=== PATIENT | male | born 1980 | race American Indian/Alaskan Native ===

== ENCOUNTER 2019-11-19 11:17 | Emergency (ER) | payer SELFPAY ==
[2019-11-19] MEDS ORDERED: methylPREDNISolone Sod Succinate 125 MG/2 ML INJ IV ONE (11:54)
[2019-11-19] MEDS ORDERED: KETOROLAC 30 MG/1 ML INJ IV ONE (11:54)
[2019-11-19] MEDS ORDERED: GABAPENTIN 300 MG CAP PO ONE (11:54)
--- NOTE | 2019-11-19 12:00 | Emergency Department Report ---
ED Extremity Problem HPI - General Chief complaint: Extremity Injury, Lower Stated complaint: SIATIC NERVE PAIN Time Seen by Provider: 11/19/19 11:45 Source: patient Mode of arrival: Wheelchair Limitations: No Limitations - History of Present Illness Initial comments: 39 yr old male was brought to ED via EMS with complaints of left hip/left lower back pain. Pt states 3 days ago he woke with with pain in left foot that was radiating into his left hip. Now he states the pain is mainly in left hip/left lower back and radiates into his thigh. He denies any injury or strenous activity. He states pain is worse with any movement. He states he has tried OTC meds without relief. He denies any abd pain, saddle anesthesia, leg weakness, bowel or bladder incontinence /retention. He denies any fever, chills or IV drug use. He states he had about 3-4 yrs ago. He states at the time he was given steroid injection and after that he was fine. He states he was not told what it could have been. He states he never had to f/u with PCP or ortho. MD Complaint: extremity pain, joint paint, other (Left hip pain) -: Gradual (3 days ago ) - Related Data Previous Rx's Medication Instructions Recorded Last Taken Type Gabapentin 300 mg PO DAILY #15 capsule 11/19/19 Unknown Rx predniSONE [Deltasone] 50 mg PO QDAY #5 tab 11/19/19 Unknown Rx Allergies Allergy/AdvReac Type Severity Reaction Status Date / Time No Known Allergies Allergy Verified 11/19/19 11:30 ED Review of Systems ROS: Stated complaint: SIATIC NERVE PAIN Other details as noted in HPI Comment: All other systems reviewed and negative Constitutional: chills. denies: fever Respiratory: denies: cough, shortness of breath, wheezing Cardiovascular: denies: chest pain, palpitations Gastrointestinal: denies: abdominal pain, nausea, diarrhea Musculoskeletal: back pain, arthralgia Neurological: abnormal gait. denies: headache, weakness, paresthesias ED Past Medical Hx - Past Medical History Previous Medical History?: No - Surgical History Past Surgical History?: No - Social History Smoking Status: Never Smoker Substance Use Type: None - Medications Home Medications: Home Medications Medication Instructions Recorded Confirmed Last Taken Type Gabapentin 300 mg PO DAILY #15 capsule 11/19/19 Unknown Rx predniSONE [Deltasone] 50 mg PO QDAY #5 tab 11/19/19 Unknown Rx ED Physical Exam - General Limitations: No Limitations General appearance: alert, in no apparent distress, in distress (mild from pain) - Head Head exam: Present: atraumatic, normocephalic, normal inspection - Eye Eye exam: Present: normal appearance, PERRL, EOMI Pupils: Present: normal accommodation - ENT ENT exam: Present: normal exam, mucous membranes dry, mucous membranes moist - Respiratory Respiratory exam: Absent: respiratory distress - Cardiovascular Cardiovascular Exam: Present: regular rate - GI/Abdominal GI/Abdominal exam: Present: soft, distended - Extremities Exam Extremities exam: Present: other (TTP lateral aspect of left hip but pain is worse with ROM of Left hip therefore ROM of left hip reduced. No deformity swelling, ecchymosis, or erythema noted. ). Absent: normal capillary refill, pedal edema, joint swelling - Back Exam Back exam: Present: normal inspection, paraspinal tenderness (left lower lumbar), other (+SLR left about 60 degrees ). Absent: vertebral tenderness - Neurological Exam Neurological exam: Present: alert, oriented X3, CN II-XII intact, motor sensory deficit - Psychiatric Psychiatric exam: Present: normal affect, normal mood - Skin Skin exam: Present: intact ED Course Vital Signs 11/19/19 11/19/19 11/19/19 11:31 12:18 12:48 Temperature 97.5 F L Pulse Rate 90 Respiratory 16 18 18 Rate Blood Pressure 136/89 Blood Pressure [Left] O2 Sat by Pulse 100 Oximetry 11/19/19 11/19/19 13:49 13:52 Temperature Pulse Rate 91 H Respiratory 16 18 Rate Blood Pressure Blood Pressure 140/89 [Left] O2 Sat by Pulse 98 Oximetry ED Medical Decision Making - Radiology Data Radiology results: report reviewed - Medical Decision Making 2488 -- Pt reports mild relief of his pain after solumedrol, gabapentin and toradol. xray of lumbar spin and hip show nothing acute. Pt is awake, alert, oriented x 3 and neurologically intact. His VS stable. His history and PE does not suggest cauda equida, epidural abscess, epidural hematoma, Aortic dissection/Aneurysm or any other serious pathology requiring additional testing, admission, or emergent consult at this time. Discussed xray report, suspected dx and treatment plan with pt. He will be given referral to Ortho and local PCP. Pt stable at time of d/c. Critical care attestation.: If time is entered above; I have spent that time in minutes in the direct care of this critically ill patient, excluding procedure time. ED Disposition Clinical Impression: Lumbar radiculopathy, acute Disposition: DC-01 TO HOME OR SELFCARE Is pt being admited?: No Does the pt Need Aspirin: No Condition: Stable Instructions: Sciatica (ED) Additional Instructions: Take medications as prescribed. I recommend follow up with Freight [facility]er if symptoms continues next week. You may need MRI. Return to ED if your symptoms changes or worsens in anyway. Prescriptions: predniSONE [Deltasone] 50 mg PO QDAY #5 tab Gabapentin 300 mg PO DAILY #15 capsule Referrals: HERO FERRARA MD [Staff Physician] - 3-5 Days MARTHA MONSALVE MD [Staff Physician] - 3-5 Days Forms: Work/School Release Form(ED) Time of Disposition: 14:31
--- NOTE | 2019-11-19 12:54 | XRay Report ---
LUMBAR SPINE 3 VIEWS INDICATION / CLINICAL INFORMATION: radiculopathy. COMPARISON: None available. FINDINGS: BONES/JOINT(S): No acute fracture or subluxation. No significant degenerative changes. SOFT TISSUES: No significant abnormality. ADDITIONAL FINDINGS: None. Signer Name: Adam Garrett MD Signed: 11/19/2019 12:50 PM Workstation Name: [id number]
--- NOTE | 2019-11-19 12:55 | XRay Report ---
LEFT HIP 2 VIEWS INDICATION / CLINICAL INFORMATION: hip injury. COMPARISON: None available. FINDINGS: BONES/JOINT(S): No acute fracture or subluxation. No significant degenerative changes. SOFT TISSUES: No significant abnormality. ADDITIONAL FINDINGS: None. Signer Name: Adam Garrett MD Signed: 11/19/2019 12:50 PM Workstation Name: [email or web address]
[2019-11-19] MEDS ORDERED: ACETAMINOPHEN W/CODEINE 300-30 MG TAB PO ONE ×2 (13:39→14:36)
[2019-11-19 13:51] VITALS: BP 140/89
== END 2019-11-19 14:59 | disposition home or self-care (01) ==
LOC: ED 11:17
DX: M54.16 Radiculopathy, lumbar region (principal)
CPT/HCPCS: 72100; 73502; 99283; J1885; J2930

== ENCOUNTER 2020-08-04 21:37 | Observation (INO) | payer SELFPAY ==
[2020-08-04 23:18] LABS: Mean Corpuscular Volume 77 fl (84-94); Platelet Count 247 K/mm3 (140-440); Red Blood Count 5.13 M/mm3 (3.65-5.03); Red Cell Distribution Width 16.2 % (13.2-15.2)
[2020-08-04 23:27] LABS: Hematocrit 39.5 % (35.5-45.6); Hemoglobin 15.3 gm/dl (11.8-15.2)
[2020-08-04 23:29] LABS: Mean Corpuscular HGB Conc 39 % (32-34)
[2020-08-04 23:44] LABS: Albumin 3.1 g/dL (3.9-5); Blood Urea Nitrogen 9 mg/dL (9-20); Calcium 8.5 mg/dL (8.4-10.2); Hemolysis Index 219
--- NOTE | 2020-08-04 23:56 | XRay Report ---
CHEST 1 VIEW 2315 INDICATION / CLINICAL INFORMATION: Palpitations, dyspnea COMPARISON: None available. FINDINGS: SUPPORT DEVICES: None HEART / MEDIASTINUM: No significant abnormality. LUNGS / PLEURA: No significant pulmonary or pleural abnormality. No pneumothorax. ADDITIONAL FINDINGS: No significant additional findings. IMPRESSION: No significant acute abnormality Signer Name: Anand Woo MD Signed: 08/04/2020 11:52 PM Workstation Name: [id number]
--- NOTE | 2020-08-05 00:03 | Event Note ---
ED Screening Note Date of service: 08/04/20 Time: 23:35 ED Screening Note: Patient is a 40-year-old -[place] male with no past medical history except chronic heavy tobacco abuse who presents to the ED with complaint of acute onset persistent shortness of breath, chest pain, dizziness and lightheadedness with persistent near syncopal episodes for the last 2 days. Patient states that the symptoms have worsened even at rest. Patient denies fever, chills, sore throat, headache, loss of consciousness, abdominal pain, nausea and vomiting, diarrhea, dysuria, urinary frequency and urgency, palpitations, change in vision, cough or traumatic injury or neck pain or back pain. This initial assessment/diagnostic orders/clinical plan/treatment(s) is/are subject to change based on patients health status, clinical progression and re- assessment by fellow clinical providers in the ED. Further treatment and workup at subsequent clinical providers discretion. Patient/guardian urged not to elope from the ED as their condition may be serious if not clinically assessed and managed. Initial orders include: CBC, CMP, troponin, EKG, chest x-ray
[2020-08-05 00:06] LABS: Alanine Aminotransferase 95 units/L (7-56)
[2020-08-05 00:10] LABS: BUN/Creatinine Ratio 45
[2020-08-05] MEDS ORDERED: SODIUM CHLORIDE 0.9% 1000 ML 1,000 ML IV ONE (01:46)
--- NOTE | 2020-08-05 01:51 | Emergency Department Report ---
HPI - General Chief Complaint: Dyspnea/Respdistress Time Seen by Provider: 08/05/20 01:39 - HPI HPI: This is a 40-year-old male presents to the emergency department with a complaint of a 1 day history of having some shortness of breath, palpitations and some lightheadedness/dizziness. He denies any fever, vision change, slurred speech, numbness or paresthesias, chest pain, lower extremity edema. Patient is a tobacco smoker but denies any illicit drug use. The patient does admit to drinking alcohol but says that he does not drink every day and denies any history of dependence. He has not taken anything for symptoms prior to presentation. The palpitations feels like his heart is beating fast and hard. No recent travel or sick contacts at home. He denies any past medical history. He does not have a primary care physician. ED Past Medical Hx - Past Medical History Previous Medical History?: No - Surgical History Additional Surgical History: right thumb - Social History Smoking Status: Current Every Day Smoker Substance Use Type: Alcohol - Medications Home Medications: Home Medications Medication Instructions Recorded Confirmed Last Taken Type Gabapentin 300 mg PO DAILY #15 capsule 11/19/19 Unknown Rx predniSONE [Deltasone] 50 mg PO QDAY #5 tab 11/19/19 Unknown Rx ED Review of Systems ROS: Stated complaint: DIZZINESS/TROUBLE BREATHING Other details as noted in HPI Comment: All other systems reviewed and negative Constitutional: denies: chills, fever Eyes: denies: eye pain, vision change ENT: denies: ear pain, throat pain Respiratory: shortness of breath. denies: cough Cardiovascular: palpitations. denies: chest pain, edema Gastrointestinal: denies: abdominal pain, vomiting Genitourinary: denies: dysuria, discharge Musculoskeletal: denies: back pain, arthralgia Skin: denies: rash, lesions Neurological: other (lightheaded). denies: headache Physical Exam - Physical Exam Vital Signs: Vital Signs 08/04/20 22:42 Temperature 98.8 F Pulse Rate 101 H Respiratory 18 Rate Blood Pressure 135/83 O2 Sat by Pulse 100 Oximetry Physical Exam: GENERAL: The patient is well-developed well-nourished. HENT: Normocephalic. Atraumatic. Patient has moist mucous membranes. EYES: Extraocular motions are intact. NECK: Supple. Trachea is midline. CHEST/LUNGS: Clear to auscultation. There is no respiratory distress noted. HEART/CARDIOVASCULAR: Regular. There is mild tachycardia. There is no murmur. ABDOMEN: Abdomen is soft, nontender. Patient has normal bowel sounds. SKIN: Skin is warm and dry. NEURO: The patient is awake, alert, and oriented. The patient is cooperative. The patient has no focal neurologic deficits. Normal speech. Cranial nerves II through XII grossly intact. MUSCULOSKELETAL: There is no tenderness or deformity. There is no limitation range of motion. ED Course Vital Signs 08/04/20 22:42 Temperature 98.8 F Pulse Rate 101 H Respiratory 18 Rate Blood Pressure 135/83 O2 Sat by Pulse 100 Oximetry ED Medical Decision Making - Lab Data Result diagrams: 08/04/20 23:04 08/04/20 23:04 Labs 08/04/20 08/04/20 08/04/20 23:04 23:04 23:04 WBC 9.1 RBC 5.13 H Hgb 15.3 H Hct 39.5 MCV 77 L MCH 30 MCHC 39 H* RDW 16.2 H Plt Count 247 Lymph % (Auto) Hatch Supervisor Lymph # (Auto) Hatch Supervisor Add Manual Diff Complete Total Counted 100 Seg Neutrophils % Hatch Supervisor Seg Neuts % (Manual) 74.0 H Band Neutrophils % 2.0 Lymphocytes % (Manual) 19.0 Monocytes % (Manual) 4.0 Basophils % (Manual) 1.0 Nucleated RBC % Not Reportable Seg Neutrophils # Man 6.7 Band Neutrophils # 0.2 Lymphocytes # (Manual) 1.7 Abs React Lymphs (Man) 0.0 Monocytes # (Manual) 0.4 Eosinophils # (Manual) 0.0 Basophils # (Manual) 0.1 Metamyelocytes # 0.0 Myelocytes # 0.0 Promyelocytes # 0.0 Blast Cells # 0.0 WBC Morphology Not Reportable Hypersegmented Neuts Not Reportable Hyposegmented Neuts Not Reportable Hypogranular Neuts Not Reportable Smudge Cells Not Reportable Toxic Granulation Not Reportable Toxic Vacuolation Not Reportable Dohle Bodies Not Reportable Pelger-Huet Anomaly Not Reportable Lacy Rods Not Reportable Platelet Estimate Consistent w auto Clumped Platelets Not Reportable Plt Clumps, EDTA Not Reportable Large Platelets Not Reportable Giant Platelets Not Reportable Platelet Satelliting Not Reportable Plt Morphology Comment Not Reportable RBC Morphology Not Reportable Dimorphic RBCs Not Reportable Polychromasia Not Reportable Hypochromasia Not Reportable Poikilocytosis Not Reportable Anisocytosis Not Reportable Microcytosis Not Reportable Macrocytosis Not Reportable Spherocytes Not Reportable Pappenheimer Bodies Not Reportable Sickle Cells Not Reportable Target Cells Not Reportable Tear Drop Cells Not Reportable Ovalocytes Not Reportable Helmet Cells Not Reportable Stanton-Waterman Bodies Not Reportable [place] Rings Not Reportable [place] Cells Not Reportable Bite Cells Not Reportable Crenated Cell Not Reportable Elliptocytes Not Reportable Acanthocytes (Spur) Not Reportable Rouleaux Not Reportable Hemoglobin C Crystals Not Reportable Schistocytes Not Reportable Malaria parasites Not Reportable Otoniel Bodies Not Reportable Hem Pathologist Commnt No Sodium 118 L* Potassium 4.5 Chloride 80.6 L Carbon Dioxide 16 L Anion Gap 26 BUN 9 Creatinine < 0.2 L Estimated GFR > 60 BUN/Creatinine Ratio 45 Glucose 90 Calcium 8.5 Phosphorus Magnesium Total Bilirubin 0.80 AST 177 H ALT 95 H Alkaline Phosphatase 177 H Troponin T < 0.010 Total Protein 6.7 Albumin 3.1 L Albumin/Globulin Ratio 0.9 TSH 1.580 Hepatitis A IgM Ab Hep Bs Antigen Hep B Core IgM Ab Hepatitis C Antibody 08/04/20 08/04/20 23:04 23:04 WBC RBC Hgb Hct MCV MCH MCHC RDW Plt Count Lymph % (Auto) Lymph # (Auto) Add Manual Diff Total Counted Seg Neutrophils % Seg Neuts % (Manual) Band Neutrophils % Lymphocytes % (Manual) Monocytes % (Manual) Basophils % (Manual) Nucleated RBC % Seg Neutrophils # Man Band Neutrophils # Lymphocytes # (Manual) Abs React Lymphs (Man) Monocytes # (Manual) Eosinophils # (Manual) Basophils # (Manual) Metamyelocytes # Myelocytes # Promyelocytes # Blast Cells # WBC Morphology Hypersegmented Neuts Hyposegmented Neuts Hypogranular Neuts Smudge Cells Toxic Granulation Toxic Vacuolation Dohle Bodies Pelger-Huet Anomaly Lacy Rods Platelet Estimate Clumped Platelets Plt Clumps, EDTA Large Platelets Giant Platelets Platelet Satelliting Plt Morphology Comment RBC Morphology Dimorphic RBCs Polychromasia Hypochromasia Poikilocytosis Anisocytosis Microcytosis Macrocytosis Spherocytes Pappenheimer Bodies Sickle Cells Target Cells Tear Drop Cells Ovalocytes Helmet Cells Stanton-Waterman Bodies [place] Rings [place] Cells Bite Cells Crenated Cell Elliptocytes Acanthocytes (Spur) Rouleaux Hemoglobin C Crystals Schistocytes Malaria parasites Otoniel Bodies Hem Pathologist Commnt Sodium Potassium Chloride Carbon Dioxide Anion Gap BUN Creatinine Estimated GFR BUN/Creatinine Ratio Glucose Calcium Phosphorus 2.40 L Magnesium 1.80 Total Bilirubin AST ALT Alkaline Phosphatase Troponin T Total Protein Albumin Albumin/Globulin Ratio TSH Hepatitis A IgM Ab Non-reactive Hep Bs Antigen Non-reactive Hep B Core IgM Ab Non-reactive Hepatitis C Antibody Non-reactive - EKG Data -: EKG Interpreted by Me EKG shows normal: sinus rhythm, axis, intervals, QRS complexes, ST-T waves Rate: normal - EKG Data When compared to previous EKG there are: previous EKG unavailable Interpretation: normal EKG - Radiology Data Radiology results: image reviewed interpreted by me: Chest x-ray does not show any acute process. There are no pleural effusions, obvious pneumonia and there is no pneumothorax. No significant cardiomegaly. - Medical Decision Making This patient presents to the emergency department with complaint of some generalized weakness, lightheadedness, palpitations, shortness of breath. The patient has multiple lab and electrolyte abnormalities. While patient does admit to drinking alcohol at times, he denies that he drinks every day or have any history of alcohol dependence. However his transaminitis with AST to ALT ratio, and the hypochloremic hyponatremia, does give me suspicion for history of chronic alcohol abuse. On examination the patient does not have any focal, motor or sensory deficits and his cranial nerves are intact. Heart and lung sounds are normal to auscultation. He does not appear in any respiratory distress. He was started on IV fluid resuscitation with normal saline as the normal saline is hypertonic to his current sodium level. He will be admitted to the hospital for further evaluation and treatment and was accepted for admission by the hospitalist, Dr. Winchester. Critical Care Time: No Critical care attestation.: If time is entered above; I have spent that time in minutes in the direct care of this critically ill patient, excluding procedure time. ED Disposition Clinical Impression: Hyponatremia syndrome, Hypochloremia, Transaminitis Disposition: OP ADMIT IP TO THIS HOSP Is pt being admited?: Yes Condition: Serious Time of Disposition: 01:57
[2020-08-05 02:02] LABS: Total Cells Counted 100
[2020-08-05 02:10] LABS: Band Neutrophils # (Manual) 0.2 K/mm3
[2020-08-05 02:12] LABS: Platelet Estimate Consistent w Auto
[2020-08-05] MEDS ORDERED: ONDANSETRON 4 MG/2 ML INJ IV PRN (02:48)
[2020-08-05] MEDS ORDERED: ACETAMINOPHEN 325 MG TAB PO PRN (02:48)
[2020-08-05] MEDS ORDERED: HALOPERIDOL LACTATE 5 MG/1 ML INJ IV PRN (02:48)
[2020-08-05] MEDS ORDERED: ALBUTEROL 2.5 MG/3 ML NEBU IH PRN (02:48)
[2020-08-05] MEDS ORDERED: LORazepam 2 MG/ML VIAL IV PRN (02:48)
[2020-08-05] MEDS ORDERED: SODIUM CHLORIDE 0.9% 1000 ML 1,000 ML IV SCH (03:00)
[2020-08-05] MEDS ORDERED: METOCLOPRAMIDE 10 MG/2 ML INJ IV ONE (03:05)
--- NOTE | 2020-08-05 03:44 | History and Physical Report ---
History of Present Illness Date of examination: 08/05/20 Date of admission: 08/05/20 01:57 Chief complaint: Palpitations, shortness of breath, generalized weakness History of present illness: 40-year-old -Eth[place]ian male who is an ongoing smoker with history of alcohol abuse who presents [facility] with complaints of lightheadedness, dizziness, palpitation, shortness of breath and generalized weakness x1 to 2 days. Patient states that he feels like his heart is beating faster and harder than usual. He is normally at rest when experiencing palpitations. Endorses mild dyspnea at rest. Admits to new stress at home that he is still trying to cope with, and thinks that he might have undiagnosed anxiety. Denies illicit drug use, alterations in speech, alterations in gait, syncopal episodes, recent fall/injury, lower extremity edema, abdominal pain, hematuria, cough, fever, headache, sputum production or illicit drug use. Past History Past Surgical History: Other (Right thumb surgery) Social history: single, lives with family (Sister), smoking, alcohol abuse, full code. denies: prescription drug abuse, IV drug use Family history: no significant family history Medications and Allergies Allergies Allergy/AdvReac Type Severity Reaction Status Date / Time No Known Allergies Allergy Verified 11/19/19 11:30 Home Medications Medication Instructions Recorded Confirmed Last Taken Type Gabapentin 300 mg PO DAILY #15 capsule 11/19/19 Unknown Rx predniSONE [Deltasone] 50 mg PO QDAY #5 tab 11/19/19 Unknown Rx Active Meds: Active Medications Acetaminophen (Acetaminophen 325 Mg Tab) 650 mg PO Q4H PRN PRN Reason: Pain MILD(1-3)/Fever >100.5/STARR Albuterol (Albuterol 2.5 Mg/3 Ml Nebu) 2.5 mg IH Q4HRT PRN PRN Reason: Shortness Of Breath Docusate Sodium (Docusate Sodium 100 Mg Cap) 100 mg PO BID RODRIKC Famotidine (Famotidine 20 Mg/2 Ml Inj) 20 mg IV BID RODRICK Folic Acid (Folic Acid 1 Mg Tab) 1 mg PO QDAY RODRICK Haloperidol Lactate (Haloperidol Lactate 5 Mg/1 Ml Inj) 5 mg IV Q1H PRN PRN Reason: Unrespon. to mult. doses BZD's Sodium Chloride (Nacl 0.9% 1000 Ml) 1,000 mls @ 250 mls/hr IV ONCE ONE Stop: 08/05/20 05:45 Last Admin: 08/05/20 02:27 Dose: 250 mls/hr Documented by: Sodium Chloride (Nacl 0.9% 1000 Ml) 1,000 mls @ 100 mls/hr IV DIRECT RODRICK Piperacillin Sod/Tazobactam Sod (Zosyn/Ns 4.5gm/100ml) 4.5 gm in 100 mls @ 200 mls/hr IV Q8H RODRICK; Protocol Lorazepam (Lorazepam 2 Mg/Ml Vial) 2 mg IV Q1H PRN PRN Reason: CIWA-Ar 8-15 Multivitamins (Multivitamins ,Therapeutic Tab) 1 each PO QDAY RODRICK Nicotine (Nicotine 14 Mg/24 Hr Patch) 14 mg TD QDAY RODRICK Ondansetron HCl (Ondansetron 4 Mg/2 Ml Inj) 4 mg IV Q6H PRN PRN Reason: Nausea And Vomiting Sodium Chloride (Sodium Chloride 0.9% 10 Ml Flush Syringe) 10 ml IV BID RODRICK Sodium Chloride (Sodium Chloride 0.9% 10 Ml Flush Syringe) 10 ml IV PRN PRN PRN Reason: LINE FLUSH Thiamine HCl (Thiamine 100 Mg Tab) 100 mg PO QDAY RODRICK Review of Systems All systems: negative (As noted in HPI) Exam - Physical Exam Narrative exam: Physical exam General appearance: Present: No acute distress, alert and oriented 3, - Ethiopian adult male - EENT Eyes: Present: PERRL, EOM intact ENT: hearing intact, normal dentition - Neck Neck: Present: supple, normal ROM - Respiratory Respiratory effort: Non-labored Respiratory: Clear throughout - Cardiovascular Heart rate: 72(bpm) Rhythm: Sinus Heart Sounds: Present: S1 & S2. Absent: rub, click - Extremities Extremities: no ischemia, pulses intact, - Peripheral Assessment Peripheral Pulses: within normal limits - Abdominal General gastrointestinal: Distended, non-tender, normal bowel sounds - Integumentary Integumentary: Present: warm, dry - Musculoskeletal Musculoskeletal: Able to move all extremities -Neurological Neurological: CN II-XII intact - Psychiatric Psychiatric: cooperative - Constitutional Vitals: Temp Pulse Resp BP Pulse Ox 98.8 F 94 H 19 147/92 100 08/04/20 22:42 08/05/20 02:30 08/05/20 02:30 08/05/20 02:30 08/04/20 22:42 HEART Score - HEART Score Troponin: Troponin T < 0.010 ng/mL (0.00-0.029) 08/04/20 23:04 Results - Labs CBC & Chem 7: 08/04/20 23:04 08/04/20 23:04 Labs: Laboratory Last Values WBC 9.1 K/mm3 (4.5-11.0) 08/04/20 23:04 RBC 5.13 M/mm3 (3.65-5.03) H 08/04/20 23:04 Hgb 15.3 gm/dl (11.8-15.2) H 08/04/20 23:04 Hct 39.5 % (35.5-45.6) 08/04/20 23:04 MCV 77 fl (84-94) L 08/04/20 23:04 MCH 30 pg (28-32) 08/04/20 23:04 MCHC 39 % (32-34) H* 08/04/20 23:04 RDW 16.2 % (13.2-15.2) H 08/04/20 23:04 Plt Count 247 K/mm3 (140-440) 08/04/20 23:04 Lymph % (Auto) Senior Technical Analyst 08/04/20 23:04 Lymph # (Auto) Senior Technical Analyst 08/04/20 23:04 Add Manual Diff Complete 08/04/20 23:04 Total Counted 100 08/04/20 23:04 Seg Neutrophils % Senior Technical Analyst 08/04/20 23:04 Seg Neuts % (Manual) 74.0 % (40.0-70.0) H 08/04/20 23:04 Band Neutrophils % 2.0 % 08/04/20 23:04 Lymphocytes % (Manual) 19.0 % (13.4-35.0) 08/04/20 23:04 Monocytes % (Manual) 4.0 % (0.0-7.3) 08/04/20 23:04 Basophils % (Manual) 1.0 % (0.0-1.8) 08/04/20 23:04 Nucleated RBC % Not Reportable 08/04/20 23:04 Seg Neutrophils # Man 6.7 K/mm3 (1.8-7.7) 08/04/20 23:04 Band Neutrophils # 0.2 K/mm3 08/04/20 23:04 Lymphocytes # (Manual) 1.7 K/mm3 (1.2-5.4) 08/04/20 23:04 Abs React Lymphs (Man) 0.0 K/mm3 08/04/20 23:04 Monocytes # (Manual) 0.4 K/mm3 (0.0-0.8) 08/04/20 23:04 Eosinophils # (Manual) 0.0 K/mm3 (0.0-0.4) 08/04/20 23:04 Basophils # (Manual) 0.1 K/mm3 (0.0-0.1) 08/04/20 23:04 Metamyelocytes # 0.0 K/mm3 08/04/20 23:04 Myelocytes # 0.0 K/mm3 08/04/20 23:04 Promyelocytes # 0.0 K/mm3 08/04/20 23:04 Blast Cells # 0.0 K/mm3 08/04/20 23:04 WBC Morphology Not Reportable 08/04/20 23:04 Hypersegmented Neuts Not Reportable 08/04/20 23:04 Hyposegmented Neuts Not Reportable 08/04/20 23:04 Hypogranular Neuts Not Reportable 08/04/20 23:04 Smudge Cells Not Reportable 08/04/20 23:04 Toxic Granulation Not Reportable 08/04/20 23:04 Toxic Vacuolation Not Reportable 08/04/20 23:04 Dohle Bodies Not Reportable 08/04/20 23:04 Pelger-Huet Anomaly Not Reportable 08/04/20 23:04 Lacy Rods Not Reportable 08/04/20 23:04 Platelet Estimate Consistent w auto 08/04/20 23:04 Clumped Platelets Not Reportable 08/04/20 23:04 Plt Clumps, EDTA Not Reportable 08/04/20 23:04 Large Platelets Not Reportable 08/04/20 23:04 Giant Platelets Not Reportable 08/04/20 23:04 Platelet Satelliting Not Reportable 08/04/20 23:04 Plt Morphology Comment Not Reportable 08/04/20 23:04 RBC Morphology Not Reportable 08/04/20 23:04 Dimorphic RBCs Not Reportable 08/04/20 23:04 Polychromasia Not Reportable 08/04/20 23:04 Hypochromasia Not Reportable 08/04/20 23:04 Poikilocytosis Not Reportable 08/04/20 23:04 Anisocytosis Not Reportable 08/04/20 23:04 Microcytosis Not Reportable 08/04/20 23:04 Macrocytosis Not Reportable 08/04/20 23:04 Spherocytes Not Reportable 08/04/20 23:04 Pappenheimer Bodies Not Reportable 08/04/20 23:04 Sickle Cells Not Reportable 08/04/20 23:04 Target Cells Not Reportable 08/04/20 23:04 Tear Drop Cells Not Reportable 08/04/20 23:04 Ovalocytes Not Reportable 08/04/20 23:04 Helmet Cells Not Reportable 08/04/20 23:04 Stanton-Greenhorn Bodies Not Reportable 08/04/20 23:04 [place] Rings Not Reportable 08/04/20 23:04 [place] Cells Not Reportable 08/04/20 23:04 Bite Cells Not Reportable 08/04/20 23:04 Crenated Cell Not Reportable 08/04/20 23:04 Elliptocytes Not Reportable 08/04/20 23:04 Acanthocytes (Spur) Not Reportable 08/04/20 23:04 Rouleaux Not Reportable 08/04/20 23:04 Hemoglobin C Crystals Not Reportable 08/04/20 23:04 Schistocytes Not Reportable 08/04/20 23:04 Malaria parasites Not Reportable 08/04/20 23:04 Otoniel Bodies Not Reportable 08/04/20 23:04 Hem Pathologist Commnt No 08/04/20 23:04 Sodium 118 mmol/L (137-145) L* 08/04/20 23:04 Potassium 4.5 mmol/L (3.6-5.0) 08/04/20 23:04 Chloride 80.6 mmol/L (98-107) L 08/04/20 23:04 Carbon Dioxide 16 mmol/L (22-30) L 08/04/20 23:04 Anion Gap 26 mmol/L 08/04/20 23:04 BUN 9 mg/dL (9-20) 08/04/20 23:04 Creatinine < 0.2 mg/dL (0.8-1.3) L 08/04/20 23:04 Estimated GFR > 60 ml/min 08/04/20 23:04 BUN/Creatinine Ratio 45 % 08/04/20 23:04 Glucose 90 mg/dL (75-100) 08/04/20 23:04 Calcium 8.5 mg/dL (8.4-10.2) 08/04/20 23:04 Phosphorus 2.40 mg/dL (2.5-4.5) L 08/04/20 23:04 Magnesium 1.80 mg/dL (1.7-2.3) 08/04/20 23:04 Total Bilirubin 0.80 mg/dL (0.1-1.2) 08/04/20 23:04 AST 177 units/L (5-40) H 08/04/20 23:04 ALT 95 units/L (7-56) H 08/04/20 23:04 Alkaline Phosphatase 177 units/L (35-129) H 08/04/20 23:04 Troponin T < 0.010 ng/mL (0.00-0.029) 08/04/20 23:04 Total Protein 6.7 g/dL (6.3-8.2) 08/04/20 23:04 Albumin 3.1 g/dL (3.9-5) L 08/04/20 23:04 Albumin/Globulin Ratio 0.9 % 08/04/20 23:04 TSH 1.580 mlU/mL (0.270-4.200) 08/04/20 23:04 - Diagnostic Impressions Diagnostic Impressions: CXR: FINDINGS: SUPPORT DEVICES: None HEART / MEDIASTINUM: No significant abnormality. LUNGS / PLEURA: No significant pulmonary or pleural abnormality. No pneumothorax. ADDITIONAL FINDINGS: No significant additional findings. IMPRESSION: No significant acute abnormality Assessment and Plan Assessment and plan: Hyponatremia -Na on admission 118 -Slowly correct Na with IVF -Every 4 hours sodium checks -Nephrology consulted -Continue to monitor replete prn Transaminitis -Likely due to alcohol abuse -We will check hepatitis panel -Day team may consider abdominal ultrasound Dyspnea -?? Stress-induced -O2 sat 100% on room air -CXR negative -?? Undiagnosed obstructive lung disease -Albuterol as needed -May benefit from outpatient follow-up with pulmonology Malnutrition -Albumin 3.1 -Likely due to poor oral intake secondary to alcohol abuse -Encourage intake -Dietitian consult pending EtOH Abuse -Reports heavy cyclical binge drinking -Initiate CIWA protocol -Start multivitamin, thiamine and Folic Acid -Counseled for cessation abuse Tobacco abuse -Current every day smoker -Counseled for cessation -Nicotine patch when necessary GI and DVT PPx -On Pepcid -On heparin -On SCDs Advance Directives: No VTE prophylaxis?: Chemical, Mechanical Plan of care discussed with patient/family: Yes
[2020-08-05 03:47] LABS: Hepatitis B Surface Antigen Non-Reactive (Negative); Hepatitis C Virus Antibody Non-Reactive (NonReactive)
[2020-08-05] MEDS: PIPERACIL/TAZOBACTA 4.5/NS 100 4.5 GM/100 ML VIAL IV SCH ×3 (05:01→22:04)
--- NOTE | 2020-08-05 10:11 | Consultation ---
History of Present Illness - Reason for Consult Consult date: 08/05/20 hyponatremia - History of Present Illness 40 year old M with h/o etOH abuse admitted with lightheadedness, dizziness, palpitation, shortness of breath and generalized weakness. He Denies illicit drug use, alterations in speech, alterations in gait, syncopal episodes, recent fall/injury, lower extremity edema, abdominal pain, hematuria, cough, fever, headache, sputum production or illicit drug use. ROS: As in HPI otherwise 12 point review of systems -ve Past History Past Surgical History: Other (Right thumb surgery) Social history: single, lives with family (Sister), smoking, alcohol abuse, full code. denies: prescription drug abuse, IV drug use Family history: no significant family history Medications and Allergies Allergies Allergy/AdvReac Type Severity Reaction Status Date / Time No Known Allergies Allergy Verified 11/19/19 11:30 Home Medications Medication Instructions Recorded Confirmed Last Taken Type Gabapentin 300 mg PO DAILY #15 capsule 11/19/19 08/05/20 Unknown Rx predniSONE [Deltasone] 50 mg PO QDAY #5 tab 11/19/19 08/05/20 Unknown Rx Active Meds: Active Medications Acetaminophen (Acetaminophen 325 Mg Tab) 650 mg PO Q4H PRN PRN Reason: Pain MILD(1-3)/Fever >100.5/STARR Albuterol (Albuterol 2.5 Mg/3 Ml Nebu) 2.5 mg IH Q4HRT PRN PRN Reason: Shortness Of Breath Docusate Sodium (Docusate Sodium 100 Mg Cap) 100 mg PO BID RODRICK Famotidine (Famotidine 20 Mg/2 Ml Inj) 20 mg IV BID RODRICK Folic Acid (Folic Acid 1 Mg Tab) 1 mg PO QDAY RODRICK Haloperidol Lactate (Haloperidol Lactate 5 Mg/1 Ml Inj) 5 mg IV Q1H PRN PRN Reason: Unrespon. to mult. doses BZD's Sodium Chloride (Nacl 0.9% 1000 Ml) 1,000 mls @ 100 mls/hr IV DIRECT RODRICK Piperacillin Sod/Tazobactam Sod (Zosyn/Ns 4.5gm/100ml) 4.5 gm in 100 mls @ 200 mls/hr IV Q8H RODRICK; Protocol Last Admin: 08/05/20 05:01 Dose: 200 mls/hr Documented by: Lorazepam (Lorazepam 2 Mg/Ml Vial) 2 mg IV Q1H PRN PRN Reason: CIWA-Ar 8-15 Multivitamins (Multivitamins ,Therapeutic Tab) 1 each PO QDAY [facility] Nicotine (Nicotine 14 Mg/24 Hr Patch) 14 mg TD QDAY RODRICK Ondansetron HCl (Ondansetron 4 Mg/2 Ml Inj) 4 mg IV Q6H PRN PRN Reason: Nausea And Vomiting Sodium Chloride (Sodium Chloride 0.9% 10 Ml Flush Syringe) 10 ml IV BID RODRICK Sodium Chloride (Sodium Chloride 0.9% 10 Ml Flush Syringe) 10 ml IV PRN PRN PRN Reason: LINE FLUSH Thiamine HCl (Thiamine 100 Mg Tab) 100 mg PO QDAY [facility] Exam - Vital Signs Vital signs: Vital Signs Temp Pulse Resp BP Pulse Ox 98.8 F 101 H 18 135/83 100 08/04/20 22:42 08/04/20 22:42 08/04/20 22:42 08/04/20 22:42 08/04/20 22:42 - Physical Exam Narrative exam: General appearance: Present: No acute distress, alert and oriented 3, - [place] adult male - EENT Eyes: Present: PERRL, EOM intact ENT: hearing intact, normal dentition - Neck Neck: Present: supple, normal ROM - Respiratory Respiratory effort: Non-labored Respiratory: Clear throughout - Cardiovascular Heart rate: 72(bpm) Rhythm: Sinus Heart Sounds: Present: S1 & S2. Absent: rub, click - Extremities Extremities: no ischemia, pulses intact, - Peripheral Assessment Peripheral Pulses: within normal limits - Abdominal General gastrointestinal: Distended, non-tender, normal bowel sounds - Integumentary Integumentary: Present: warm, dry - Musculoskeletal Musculoskeletal: Able to move all extremities -Neurological Neurological: CN II-XII intact - Psychiatric Psychiatric: cooperative Results - Lab Results 08/04/20 23:04 08/05/20 16:34 Most recent lab results Calcium 8.5 mg/dL (8.4-10.2) 08/04/20 23:04 Phosphorus 2.40 mg/dL (2.5-4.5) L 08/04/20 23:04 Magnesium 1.80 mg/dL (1.7-2.3) 08/04/20 23:04 Assessment and Plan Hyponatremia Transaminitis Dyspnea Malnutrition EtOH Abuse Tobacco abuse -On D5W to prevent na overcorrection -Check BMP q4H -Target rise in Na <8 meq/24 hours to prevent ODS -low bicarb on labs likely incorrect, repeat BMP Yrn Sepulveda MD [phone]
[2020-08-05] MEDS: NICOTINE 14 MG/24 HR PATCH TD SCH (10:23)
[2020-08-05] MEDS: FOLIC ACID 1 MG TAB PO SCH (10:23)
[2020-08-05] MEDS: THIAMINE 100 MG TAB PO SCH (10:23)
[2020-08-05] MEDS: FAMOTIDINE 20 MG/2 ML INJ IV SCH ×2 (10:23→22:04)
[2020-08-05] MEDS: DOCUSATE SODIUM 100 MG CAP PO SCH ×2 (10:23→22:04)
[2020-08-05] MEDS: MULTIVITAMINS ,THERAPEUTIC TAB PO SCH (10:23)
[2020-08-05 11:06] LABS: Blood Urea Nitrogen 7 mg/dL (9-20); Calcium 7.9 mg/dL (8.4-10.2); Hemolysis Index 109; Uric Acid 8.5 mg/dL (3.5-7.6)
[2020-08-05 11:12] LABS: BUN/Creatinine Ratio 35
[2020-08-05] MEDS ORDERED: DEXTROSE 5% IN WATER 500 ML IV SCH ×2 (11:18→18:00)
--- NOTE | 2020-08-05 12:26 | Event Note ---
Date: 08/05/20 Patient seen and examined This is the second IMS visit of the day Patient is alert and oriented He denies any chronic medical conditions Does not have a primary care physician Drinks 12 pack beer 3 to 4 days in a week He has no signs or symptoms of withdrawal from alcohol He is a smoker Lab results reviewed Hyponatremia secondary to beer potomania Slow improvement in serum sodium is up to 124 Hyperuricemia Await nephrology follow-up and recommendations Monitor electrolytes closely
[2020-08-05 17:10] LABS: Blood Urea Nitrogen 6 mg/dL (9-20); Calcium 7.9 mg/dL (8.4-10.2); Hemolysis Index 216
[2020-08-05 17:47] LABS: BUN/Creatinine Ratio 9
[2020-08-05 23:12] LABS: BUN/Creatinine Ratio 6; Blood Urea Nitrogen 4 mg/dL (9-20); Calcium 8.3 mg/dL (8.4-10.2)
[2020-08-06] MEDS ORDERED: SODIUM BICARBONATE 75 MEQ in DEXTROSE 5% IN WATER 1,000 ML IV SCH (01:00)
[2020-08-06] MEDS: PIPERACIL/TAZOBACTA 4.5/NS 100 4.5 GM/100 ML VIAL IV SCH ×2 (04:49→12:52)
[2020-08-06 07:20] LABS: BUN/Creatinine Ratio 2; Blood Urea Nitrogen 2 mg/dL (9-20); Calcium 8.2 mg/dL (8.4-10.2); Hemolysis Index 17
[2020-08-06] MEDS ORDERED: POTASSIUM CHLORIDE ER 20 MEQ TAB PO ONE (07:55)
--- NOTE | 2020-08-06 08:37 | Progress Note ---
Assessment and Plan Hyponatremia Transaminitis Dyspnea Malnutrition EtOH Abuse Tobacco abuse -On D5W to prevent na overcorrection -Check BMP q4H -Target rise in Na <8 meq/24 hours to prevent ODS -low bicarb on labs likely incorrect, repeat BMP Yrn Sepulveda MD [phone] Subjective Date of service: 08/06/20 Interval history: Making urine. Objective - Exam Narrative Exam: General appearance: Present: No acute distress, alert and oriented 3, - Maltese adult male - EENT Eyes: Present: PERRL, EOM intact ENT: hearing intact, normal dentition - Neck Neck: Present: supple, normal ROM - Respiratory Respiratory effort: Non-labored Respiratory: Clear throughout - Cardiovascular Heart rate: 72(bpm) Rhythm: Sinus Heart Sounds: Present: S1 & S2. Absent: rub, click - Extremities Extremities: no ischemia, pulses intact, - Peripheral Assessment Peripheral Pulses: within normal limits - Abdominal General gastrointestinal: Distended, non-tender, normal bowel sounds - Integumentary Integumentary: Present: warm, dry - Musculoskeletal Musculoskeletal: Able to move all extremities -Neurological Neurological: CN II-XII intact - Psychiatric Psychiatric: cooperative - Vital Signs Vital signs: Vital Signs - 12hr 08/05/20 08/05/20 08/06/20 21:15 23:43 05:00 Temperature 98.9 F 98.8 F Pulse Rate 98 H 96 H 92 H Respiratory 18 18 Rate Blood Pressure 108/72 114/78 O2 Sat by Pulse 98 99 Oximetry - Lab 08/04/20 23:04 08/06/20 11:15 Most recent lab results Calcium 8.2 mg/dL (8.4-10.2) L 08/06/20 05:22 Phosphorus 2.40 mg/dL (2.5-4.5) L 08/04/20 23:04 Magnesium 1.80 mg/dL (1.7-2.3) 08/04/20 23:04 Urine Sodium 15 mmol/L 08/05/20 17:48 Medications & Allergies - Medications Allergies/Adverse Reactions: Allergies No Known Allergies Allergy (Verified 11/19/19 11:30) Home Medications: Home Medications Medication Instructions Recorded Confirmed Last Taken Type Gabapentin 300 mg PO DAILY #15 capsule 11/19/19 08/05/20 Unknown Rx predniSONE [Deltasone] 50 mg PO QDAY #5 tab 11/19/19 08/05/20 Unknown Rx Active Medications: Generic Name Dose Route Start Last Admin Trade Name Freq PRN Reason Stop Dose Admin Acetaminophen 650 mg 08/05/20 02:48 Acetaminophen 325 Mg Tab PO Q4H PRN Pain MILD(1-3)/Fever >100.5/STARR Albuterol 2.5 mg 08/05/20 02:48 Albuterol 2.5 Mg/3 Ml Nebu IH Q4HRT PRN Shortness Of Breath Docusate Sodium 100 mg 08/05/20 10:00 08/05/20 22:04 Docusate Sodium 100 Mg Cap PO 100 mg BID RODRICK Administration Famotidine 20 mg 08/05/20 10:00 08/05/20 22:04 Famotidine 20 Mg/2 Ml Inj IV 20 mg BID RODRICK Administration Folic Acid 1 mg 08/05/20 10:00 08/05/20 10:23 Folic Acid 1 Mg Tab PO 1 mg QDAY RODRICK Administration Haloperidol Lactate 5 mg 08/05/20 02:48 Haloperidol Lactate 5 Mg/1 Ml Inj IV Q1H PRN Unrespon. to mult. doses BZD's Piperacillin Sod/Tazobactam Sod 4.5 gm in 100 mls @ 200 mls/hr 08/05/20 03:00 08/06/20 04:49 Zosyn/Ns 4.5gm/100ml IV 200 mls/hr Q8H RODRICK Administration Protocol Sodium Bicarbonate 75 meq/ 1,075 mls @ 100 mls/hr 08/06/20 01:00 08/06/20 00:54 Dextrose IV 100 mls/hr DIRECT RODRICK Administration Lorazepam 2 mg 08/05/20 02:48 Lorazepam 2 Mg/Ml Vial IV Q1H PRN CIWA-Ar 8-15 Multivitamins 1 each 08/05/20 10:00 08/05/20 10:23 Multivitamins ,Therapeutic Tab PO 1 each QDAY RODRICK Administration Nicotine 14 mg 08/05/20 10:00 08/05/20 10:23 Nicotine 14 Mg/24 Hr Patch TD 14 mg QDAY RODRICK Administration Ondansetron HCl 4 mg 08/05/20 02:48 Ondansetron 4 Mg/2 Ml Inj IV Q6H PRN Nausea And Vomiting Sodium Chloride 10 ml 08/05/20 10:00 08/05/20 22:04 Sodium Chloride 0.9% 10 Ml Flush Syringe IV 10 ml BID RODRICK Administration Sodium Chloride 10 ml 08/05/20 02:48 Sodium Chloride 0.9% 10 Ml Flush Syringe IV PRN PRN LINE FLUSH Thiamine HCl 100 mg 08/05/20 10:00 08/05/20 10:23 Thiamine 100 Mg Tab PO 100 mg QDAY RODRICK Administration
--- NOTE | 2020-08-06 08:38 | Progress Note ---
Subjective Date of service: 08/06/20 Objective - Vital Signs Vital signs: Vital Signs - 12hr 08/05/20 08/05/20 08/06/20 21:15 23:43 05:00 Temperature 98.9 F 98.8 F Pulse Rate 98 H 96 H 92 H Respiratory 18 18 Rate Blood Pressure 108/72 114/78 O2 Sat by Pulse 98 99 Oximetry - Lab 08/04/20 23:04 08/06/20 05:22 Most recent lab results Calcium 8.2 mg/dL (8.4-10.2) L 08/06/20 05:22 Phosphorus 2.40 mg/dL (2.5-4.5) L 08/04/20 23:04 Magnesium 1.80 mg/dL (1.7-2.3) 08/04/20 23:04 Urine Sodium 15 mmol/L 08/05/20 17:48 Medications & Allergies - Medications Allergies/Adverse Reactions: Allergies No Known Allergies Allergy (Verified 11/19/19 11:30) Home Medications: Home Medications Medication Instructions Recorded Confirmed Last Taken Type Gabapentin 300 mg PO DAILY #15 capsule 11/19/19 08/05/20 Unknown Rx predniSONE [Deltasone] 50 mg PO QDAY #5 tab 11/19/19 08/05/20 Unknown Rx Active Medications: Generic Name Dose Route Start Last Admin Trade Name Freq PRN Reason Stop Dose Admin Acetaminophen 650 mg 08/05/20 02:48 Acetaminophen 325 Mg Tab PO Q4H PRN Pain MILD(1-3)/Fever >100.5/STARR Albuterol 2.5 mg 08/05/20 02:48 Albuterol 2.5 Mg/3 Ml Nebu IH Q4HRT PRN Shortness Of Breath Docusate Sodium 100 mg 08/05/20 10:00 08/05/20 22:04 Docusate Sodium 100 Mg Cap PO 100 mg BID RODRICK Administration Famotidine 20 mg 08/05/20 10:00 08/05/20 22:04 Famotidine 20 Mg/2 Ml Inj IV 20 mg BID RODRICK Administration Folic Acid 1 mg 08/05/20 10:00 08/05/20 10:23 Folic Acid 1 Mg Tab PO 1 mg QDAY RODRICK Administration Haloperidol Lactate 5 mg 08/05/20 02:48 Haloperidol Lactate 5 Mg/1 Ml Inj IV Q1H PRN Unrespon. to mult. doses BZD's Piperacillin Sod/Tazobactam Sod 4.5 gm in 100 mls @ 200 mls/hr 08/05/20 03:00 08/06/20 04:49 Zosyn/Ns 4.5gm/100ml IV 200 mls/hr Q8H RODRICK Administration Protocol Sodium Bicarbonate 75 meq/ 1,075 mls @ 100 mls/hr 08/06/20 01:00 08/06/20 00:54 Dextrose IV 100 mls/hr DIRECT RODRICK Administration Lorazepam 2 mg 08/05/20 02:48 Lorazepam 2 Mg/Ml Vial IV Q1H PRN CIWA-Ar 8-15 Multivitamins 1 each 08/05/20 10:00 08/05/20 10:23 Multivitamins ,Therapeutic Tab PO 1 each QDAY RODRICK Administration Nicotine 14 mg 08/05/20 10:00 08/05/20 10:23 Nicotine 14 Mg/24 Hr Patch TD 14 mg QDAY RODRICK Administration Ondansetron HCl 4 mg 08/05/20 02:48 Ondansetron 4 Mg/2 Ml Inj IV Q6H PRN Nausea And Vomiting Sodium Bicarbonate 650 mg 08/06/20 14:00 Sodium Bicarbonate 650 Mg Tab PO TID RODRICK Sodium Chloride 10 ml 08/05/20 10:00 08/05/20 22:04 Sodium Chloride 0.9% 10 Ml Flush Syringe IV 10 ml BID RODRICK Administration Sodium Chloride 10 ml 08/05/20 02:48 Sodium Chloride 0.9% 10 Ml Flush Syringe IV PRN PRN LINE FLUSH Thiamine HCl 100 mg 08/05/20 10:00 08/05/20 10:23 Thiamine 100 Mg Tab PO 100 mg QDAY RODRICK Administration
[2020-08-06] MEDS: DEXTROSE 5% IN WATER 1,000 ML IV SCH ×5 (10:09→21:56)
[2020-08-06] MEDS: MULTIVITAMINS ,THERAPEUTIC TAB PO SCH (10:12)
[2020-08-06] MEDS: FOLIC ACID 1 MG TAB PO SCH (10:12)
[2020-08-06] MEDS: DOCUSATE SODIUM 100 MG CAP PO SCH ×2 (10:12→21:55)
[2020-08-06] MEDS: THIAMINE 100 MG TAB PO SCH (10:12)
[2020-08-06] MEDS: FAMOTIDINE 20 MG/2 ML INJ IV SCH ×2 (10:13→21:55)
[2020-08-06] MEDS: NICOTINE 14 MG/24 HR PATCH TD SCH (10:13)
--- NOTE | 2020-08-06 10:48 | Progress Note ---
Subjective Date of service: 08/06/20 Interval history: History of present illness: 40-year-old -Mong[place] male who is an ongoing smoker with history of alcohol abuse who presents [facility] ED with complaints of lightheadedness, dizziness, palpitation, shortness of breath and generalized weakness x1 to 2 days. Patient states that he feels like his heart is beating faster and harder than usual. He is normally at rest when experiencing palpitations. Endorses mild dyspnea at rest. Admits to new stress at home that he is still trying to cope with, and thinks that he might have undiagnosed anxiety. Denies illicit drug use, alterations in speech, alterations in gait, syncopal episodes, recent fall/injury, lower extremity edema, abdominal pain, hematuria, cough, fever, headache, sputum production or illicit drug use. 08/06 patient is alert and oriented, feels better, however complains of shortness of breath with walking and also complains of heart beating fast and associated with mild dizziness. He denies any chest pain , loss of consciousness, nausea or abdominal pain. Denies fever or chills. Nephrology note reviewed. Lab results reviewed Assessment and plan Severe hyponatremia Improved Serum potassium is 134 this morning Nephrology consulted and note reviewed Continue management per nephrology recommendations Exertional shortness of breath and tachycardia Check echocardiogram TSH is in the normal range Mildly elevated LFTs Secondary to EtOH abuse EtOH abuse Counseling done regarding cessation of alcohol Patient is not in withdrawal He states he drinks 12 pack beer 3 to 4 days in a week Possible discharge tomorrow Hyperuricemia Patient denies history of gout We will defer treatment Nephrology is also following Objective - Constitutional Vitals: Vital Signs - 12hr 08/05/20 08/06/20 08/06/20 23:43 05:00 07:54 Temperature 98.9 F 98.8 F 97.9 F Pulse Rate 96 H 92 H 107 H Respiratory 18 18 18 Rate Blood Pressure 108/72 114/78 117/80 O2 Sat by Pulse 98 99 98 Oximetry General appearance: Present: no acute distress - EENT Eyes: PERRL, EOM intact ENT: hearing intact, clear oral mucosa - Neck Neck: supple, normal ROM - Respiratory Respiratory effort: normal Respiratory: bilateral: CTA - Cardiovascular Rhythm: other (Mildly tachycardic) Heart Sounds: Present: S1 & S2 Extremities: No edema - Gastrointestinal General gastrointestinal: Present: soft, non-tender Rectal Exam: deferred - Genitourinary Male genitourinary: deferred - Integumentary Integumentary: clear - Musculoskeletal Musculoskeletal: strength equal bilaterally - Neurologic Neurologic: no focal deficits, moves all extremities - Psychiatric Psychiatric: appropriate mood/affect - Labs CBC & Chem 7: 08/04/20 23:04 08/06/20 05:22 Labs: Abnormal lab results 08/05/20 08/05/20 08/05/20 Range/Units 09:45 10:17 12:45 Sodium 124 L 124 L 120 L (137-145) mmol/L Potassium (3.6-5.0) mmol/L Chloride 87.0 L (98-107) mmol/L Carbon Dioxide (22-30) mmol/L BUN 7 L (9-20) mg/dL Creatinine < 0.2 L (0.8-1.3) mg/dL Glucose 124 H (75-100) mg/dL Uric Acid 8.5 H (3.5-7.6) mg/dL Calcium 7.9 L (8.4-10.2) mg/dL 08/05/20 08/05/20 08/06/20 Range/Units 16:34 19:19 05:22 Sodium 125 L 128 L 134 L (137-145) mmol/L Potassium 3.5 L 3.5 L (3.6-5.0) mmol/L Chloride 90.9 L 92.2 L 94.2 L (98-107) mmol/L Carbon Dioxide 5 L* D 12 L D 18 L (22-30) mmol/L BUN 6 L 4 L 2 L (9-20) mg/dL Creatinine 0.7 L D 0.7 L (0.8-1.3) mg/dL Glucose 120 H 132 H 109 H (75-100) mg/dL Uric Acid (3.5-7.6) mg/dL Calcium 7.9 L 8.3 L 8.2 L (8.4-10.2) mg/dL HEART Score - HEART Score Troponin: Troponin T < 0.010 ng/mL (0.00-0.029) 08/05/20 02:04
[2020-08-06 12:01] LABS: BUN/Creatinine Ratio 3; Blood Urea Nitrogen 3 mg/dL (9-20); Calcium 8.1 mg/dL (8.4-10.2); Hemolysis Index 57
[2020-08-06] MEDS: SODIUM BICARBONATE 650 MG TAB PO SCH ×2 (14:12→21:55)
--- NOTE | 2020-08-06 14:32 | XRay Report ---
CHEST 1 VIEW 08/06/2020 2:20 PM INDICATION / CLINICAL INFORMATION: CONGESTION. COMPARISON: 08/04/2020. FINDINGS: SUPPORT DEVICES: None. HEART / MEDIASTINUM: No significant abnormality. LUNGS / PLEURA: No significant pulmonary or pleural abnormality. No pneumothorax. ADDITIONAL FINDINGS: No significant additional findings. IMPRESSION: No acute cardiopulmonary abnormality. Signer Name: Jasvir Richardson MD Signed: 08/06/2020 2:28 PM Workstation Name: [id number][id number]
[2020-08-06 15:00] LABS: BUN/Creatinine Ratio 3; Blood Urea Nitrogen 3 mg/dL (9-20); Calcium 8.3 mg/dL (8.4-10.2); Hemolysis Index 9
[2020-08-06 19:15] LABS: BUN/Creatinine Ratio 4; Blood Urea Nitrogen 4 mg/dL (9-20); Calcium 8.4 mg/dL (8.4-10.2); Hemolysis Index 7
[2020-08-07 06:11] LABS: BUN/Creatinine Ratio 4; Blood Urea Nitrogen 3 mg/dL (9-20); Calcium 8.5 mg/dL (8.4-10.2); Hemolysis Index 15
[2020-08-07] MEDS: DEXTROSE 5% IN WATER 1,000 ML IV SCH (07:48)
[2020-08-07 09:12] VITALS: BP 137/90
[2020-08-07] MEDS: MULTIVITAMINS ,THERAPEUTIC TAB PO SCH (10:02)
[2020-08-07] MEDS: SODIUM BICARBONATE 650 MG TAB PO SCH (10:02)
[2020-08-07] MEDS: DOCUSATE SODIUM 100 MG CAP PO SCH (10:02)
[2020-08-07] MEDS: FOLIC ACID 1 MG TAB PO SCH (10:02)
[2020-08-07] MEDS: THIAMINE 100 MG TAB PO SCH (10:02)
[2020-08-07] MEDS: NICOTINE 14 MG/24 HR PATCH TD SCH (10:02)
[2020-08-07] MEDS: FAMOTIDINE 20 MG/2 ML INJ IV SCH (10:02)
--- NOTE | 2020-08-07 11:34 | Progress Note ---
Assessment and Plan Assessment: Hyponatremia Transaminitis Dyspnea Malnutrition EtOH Abuse Tobacco abuse Plan: -Labs reviewed. Serum sodium today normalized at 137, prior was 134 -On D5W to prevent sodium overcorrection, will D/C IVF today -Target rise in Na <8 meq/24 hours to prevent ODS -Can D/C home from nephrology standpoint to f/u with us in office in 1 week for outpatient monitoring of sodium levels -Plan of care reviewed with Dr. De La O Subjective Date of service: 08/07/20 Principal diagnosis: Hyponatremia Interval history: Patient seen lying in bed talking on phone. Reviewed sodium levels. Objective - Vital Signs Vital signs: Vital Signs - 12hr 08/07/20 08/07/20 04:50 08:08 Temperature 98.1 F 98.6 F Pulse Rate 94 H 93 H Respiratory 20 18 Rate Blood Pressure 130/90 137/90 O2 Sat by Pulse 99 99 Oximetry - General Appearance General appearance: well-developed, appears stated age EENT: ATNC, PERRL, hearing intact, vision intact Neck: no JVD Respiratory: Present: Decreased Breath Sounds Cardiology: S1S2 Gastrointestinal: normoactive bowel sounds Integumentary: warm and dry Neurologic: alert and oriented x3 Musculoskeletal: other (No edema) Psychiatric: cooperative - Lab 08/04/20 23:04 08/07/20 04:17 Most recent lab results Calcium 8.5 mg/dL (8.4-10.2) 08/07/20 04:17 Phosphorus 2.40 mg/dL (2.5-4.5) L 08/04/20 23:04 Magnesium 1.80 mg/dL (1.7-2.3) 08/04/20 23:04 Urine Sodium 15 mmol/L 08/05/20 17:48 Medications & Allergies - Medications Allergies/Adverse Reactions: Allergies No Known Allergies Allergy (Verified 11/19/19 11:30) Home Medications: Home Medications Medication Instructions Recorded Confirmed Last Taken Type Gabapentin 300 mg PO DAILY #15 capsule 11/19/19 08/05/20 Unknown Rx predniSONE [Deltasone] 50 mg PO QDAY #5 tab 11/19/19 08/05/20 Unknown Rx Active Medications: Generic Name Dose Route Start Last Admin Trade Name Freq PRN Reason Stop Dose Admin Acetaminophen 650 mg 08/05/20 02:48 Acetaminophen 325 Mg Tab PO Q4H PRN Pain MILD(1-3)/Fever >100.5/STARR Albuterol 2.5 mg 08/05/20 02:48 Albuterol 2.5 Mg/3 Ml Nebu IH Q4HRT PRN Shortness Of Breath Docusate Sodium 100 mg 08/05/20 10:00 08/07/20 10:02 Docusate Sodium 100 Mg Cap PO 100 mg BID RODRICK Administration Folic Acid 1 mg 08/05/20 10:00 08/07/20 10:02 Folic Acid 1 Mg Tab PO 1 mg QDAY RODRICK Administration Dextrose 1,000 mls @ 50 mls/hr 08/06/20 16:00 08/07/20 07:48 D5w IV 125 mls/hr DIRECT RODRICK Administration Multivitamins 1 each 08/05/20 10:00 08/07/20 10:02 Multivitamins ,Therapeutic Tab PO 1 each QDAY RODRICK Administration Nicotine 14 mg 08/05/20 10:00 08/07/20 10:02 Nicotine 14 Mg/24 Hr Patch TD 14 mg QDAY RODRICK Administration Ondansetron HCl 4 mg 08/05/20 02:48 Ondansetron 4 Mg/2 Ml Inj IV Q6H PRN Nausea And Vomiting Sodium Chloride 10 ml 08/05/20 10:00 08/06/20 21:55 Sodium Chloride 0.9% 10 Ml Flush Syringe IV 10 ml BID RODRICK Administration Sodium Chloride 10 ml 08/05/20 02:48 Sodium Chloride 0.9% 10 Ml Flush Syringe IV PRN PRN LINE FLUSH
[2020-08-07 12:04] LABS: BUN/Creatinine Ratio 4; Blood Urea Nitrogen 3 mg/dL (9-20); Calcium 8.4 mg/dL (8.4-10.2); Hemolysis Index 27
--- NOTE | 2020-08-07 12:54 | Discharge Summary ---
Providers - Providers Date of Admission: 08/05/20 01:57 Date of discharge: 08/07/20 Attending physician: TICO REZA 08/05/20 02:48 Consult to Physician [CONS] Routine Comment: Consulting Provider: PATRICE ZABALA Physician Instructions: Reason For Exam: hyponatremia 08/05/20 02:52 Physical Therapy Evaluation and Treat [CONS] Routine Comment: Reason For Exam: Generalized weakness, assess gait 08/05/20 02:53 Occupational Therapy Evaluate and Treat [CONS] Routine Comment: Reason For Exam: Generalized weakness, assess gait 08/05/20 03:44 Consult to Dietitian/Nutrition [CONS] Routine Physician Instructions: Reason For Exam: Reason for Consult: Malnutrition Primary care physician: P[employer] Hospitalization Condition: Serious Hospital course: History of present illness: 40-year-old -Thai male who is an ongoing smoker with history of alcohol abuse who presents [facility] ED with complaints of lightheadedness, dizziness, palpitation, shortness of breath and generalized weakness x1 to 2 days. Patient states that he feels like his heart is beating faster and harder than usual. He is normally at rest when experiencing palpitations. Endorses mild dyspnea at rest. Admits to new stress at home that he is still trying to cope with, and thinks that he might have undiagnosed anxiety. Denies illicit drug use, alterations in speech, alterations in gait, syncopal episodes, recent fall/injury, lower extremity edema, abdominal pain, hematuria, cough, fever, headache, sputum production or illicit drug use. 08/06 patient is alert and oriented, feels better, however complains of shortness of breath with walking and also complains of heart beating fast and associated with mild dizziness. He denies any chest pain , loss of consciousness, nausea or abdominal pain. Denies fever or chills. Nephrology note reviewed. Lab results reviewed 08/07 patient is doing well. Offers no complaints. He denies shortness of breath with exertion. Echo ordered results pending. Discussed with Dr. Aggarwal to review the echo. Patient otherwise is medically stable for discharge. Neph rology note reviewed. Patient has been cleared for discharge by nephrology Assessment and plan Severe hyponatremia Improved Serum potassium is 135 this morning Nephrology consulted and note reviewed Exertional shortness of breath and tachycardia Check echocardiogram TSH is in the normal range Mildly elevated LFTs Secondary to EtOH abuse EtOH abuse Counseling done regarding cessation of alcohol Patient is not in withdrawal He states he drinks 12 pack beer 3 to 4 days in a week Possible discharge tomorrow Hyperuricemia Patient denies history of gout We will defer treatment Follow-up with nephrology as an outpatient Disposition: DC-01 TO HOME OR SELFCARE Final Discharge Diagnosis (Prints w/discharge instructions): Hyponatremia Time spent for discharge: 36 minutes Core Measure Documentation - Palliative Care Palliative Care/ Comfort Measures: Not Applicable - Core Measures Any of the following diagnoses?: none Exam - Constitutional Vitals: Temp Pulse Resp BP Pulse Ox 98.6 F 93 H 18 137/90 99 08/07/20 08:08 08/07/20 08:08 08/07/20 08:08 08/07/20 08:08 08/07/20 08:08 General appearance: Present: no acute distress, well-nourished - EENT Eyes: Present: PERRL, EOM intact ENT: hearing intact - Neck Neck: Present: supple, normal ROM - Respiratory Respiratory effort: normal Respiratory: bilateral: CTA - Cardiovascular Rhythm: regular Heart Sounds: Present: S1 & S2 - Extremities Extremities: No edema - Abdominal General gastrointestinal: Present: soft, non-tender Male genitourinary: Present: deferred - Rectal Rectal Exam: deferred - Integumentary Integumentary: Present: clear - Musculoskeletal Musculoskeletal: strength equal bilaterally - Psychiatric Psychiatric: appropriate mood/affect, intact judgment & insight - Neurologic Neurologic: no focal deficits Plan Activity: no restrictions Weight Bearing Status: Full Weight Bearing Diet: regular Follow up with: SALBADOR MERINO MD [Primary Care Provider] - 7 Days ETTA JEAN BAPTISTE MD [Staff Physician] - 7 Days
--- NOTE | 2020-08-08 10:07 | Electrocardiograph Report ---
[facility] Test Date: 2020-08-05 Test Time: 02:09:40 Pat Name: HAFSA STOVALL Department: Room: A467 1 Gender: M [employer] Trimmer: Murali RODARTE : 1980 Requested By: PEDRO JACOB Order Number: [id number] Reading MD: Adarsh Lucas Measurements Intervals [place] Rate: 99 P: 60 IA: 129 QRS: 40 QRSD: 86 T: 39 QT: 342 QTc: 440 Interpretive Statements Sinus rhythm No previous ECG available for comparison Electronically Signed On 08-08-2020 10:07:21 EDT by Adarsh Lucas
== END 2020-08-07 13:30 | disposition home or self-care (01) ==
LOC: ED 21:37 → 4A 08-05 01:57
PROVIDERS: ADMIT Hospitalist; ATTEND Internal Medicine
DX: R74.01 Elevation of levels of liver transaminase levels (principal); E87.1 Hypo-osmolality and hyponatremia; E87.8 Other disorders of electrolyte and fluid balance, not elsewhere classified; F17.210 Nicotine dependence, cigarettes, uncomplicated; F10.129 Alcohol abuse with intoxication, unspecified; E63.9 Nutritional deficiency, unspecified; R06.00 Dyspnea, unspecified; Z68.29 Body mass index [BMI] 29.0-29.9, adult; Z79.899 Other long term (current) drug therapy; Z98.890 Other specified postprocedural states
CPT/HCPCS: 36415; 71045; 80048; 80053; 80074; 83735; 83880; 84100; 84295; 84300; 84443; 84484; 84550; 85025; 93005; 93306; 96361; 96365; 96366; 96367; 96375; 96376; 99285; 99406; G0378; J2543; J7030; J7070; 85007